=== PATIENT | male | born 2000 | race Caucasian/White ===

== ENCOUNTER 2021-04-11 13:55 | Observation (INO) ==
[2021-04-11] MEDS ORDERED: Ondansetron 4 MG/2 ML VIAL IVP ONE (14:56)
[2021-04-11] MEDS ORDERED: Isovue-370 500 ML BOTTLE IVP ONE (14:56)
[2021-04-11] MEDS ORDERED: 0.9 % Sodium Chloride 1,000 ML IVC ONE (14:56)
[2021-04-11 15:07] LABS: Basophils % 0.2 %; Eosinophils # 0.1 K/mcL (0.0-0.6); Eosinophils % 0.4 %; Hematocrit 44.5 % (37.5-50.1); Hemoglobin 14.4 g/dL (12.9-16.9); Immature Granulocytes % 0.4 % (0-4); Lymphocytes # 2.1 K/mcL (0.6-4.6); Lymphocytes % 14.4 %; Mean Corpuscular HGB Conc 32.4 g/dL (31.6-35.5); Mean Corpuscular Hemoglobin 28.1 pg (28.0-33.3); Mean Corpuscular Volume 86.9 fL (83.0-100.0); Monocytes # 1.4 K/mcL (0.0-1.3); Monocytes % 9.5 %; Neutrophils # 11.1 K/mcL (1.6-8.9); Platelet Count 250 K/mcL (140-400); Red Blood Count 5.12 M/mcL (4.19-5.50); Red Cell Distribution Width 12.9 % (11.5-14.5); Segmented Neutrophils % 75.1 %; White Blood Count 14.8 K/mcL (4.3-11.1)
[2021-04-11 15:09] LABS: Amorphous Sediment,Urine Few per hpf (None-Few); Bilirubin,Urine Negative (Negative); Blood,Urine Negative (Negative); Clarity,Urine Turbid (Clear); Color,Urine Yellow (Yellow); Glucose,Urine (UA) Normal (Normal); Ketones,Urine Negative (Negative); Leukocyte Esterase,Urine Negative (Negative); Mucus,Urine Few per lpf (None-Few); Nitrite,Urine Negative (Negative); Protein,Urine 30 mg/dL (Neg-Trace); RBC,Urine 0-3 per hpf (0-3); Specific Gravity,Urine 1.021 (1.010-1.025)
[2021-04-11 15:15] LABS: INR 1.4; Prothrombin Time 15.7 Seconds (9.4-12.1)
[2021-04-11 15:18] LABS: Activated Partial Thrombo Time 30.4 Seconds (26.0-36.0)
[2021-04-11 15:41] LABS: Alanine Aminotransferase 10 Units/L (7-52); Albumin 4.8 g/dL (3.5-5.7); Albumin/Globulin Ratio 2.1 (1.1-2.2); Alkaline Phosphatase 40 Units/L (34-104); Amylase 37 Units/L (29-103); Aspartate Amino Transferase 13 Units/L (13-39); BUN/Creatinine Ratio 12 (6-26); Bilirubin,Direct 0.2 mg/dL (0.0-0.2); Bilirubin,Indirect 0.9 mg/dL (0.0-1.0); Bilirubin,Total 1.1 mg/dL (0.3-1.0); Blood Urea Nitrogen 12 mg/dL (6-20); Calcium 9.3 mg/dL (8.6-10.3); Carbon Dioxide 29 mEq/L (23-29); Chloride 101 mEq/L (98-107); Globulin 2.3 g/dL (2.4-3.5); Glucose 91 mg/dL (70-105); Lipase 6 Units/L (11-82); Osmolality,Calculated 285 (280-300); Potassium 3.9 mEq/L (3.5-5.1); Sodium 138 mEq/L (136-145); Total Protein 7.1 g/dL (6.4-8.9); eGFR For African Americans > 60; eGFR For Non-African Americans > 60
[2021-04-11] MEDS ORDERED: Piperacillin/Tazobactam 3.375 GM in 0.9 % Sodium Chloride Mini Bag 100 ML IVPB ONE (17:06)
[2021-04-11] MEDS ORDERED: Ondansetron 4 MG/2 ML VIAL IVP PRN (17:30)
[2021-04-11] MEDS ORDERED: *HR* HYDROcodone/Acet 5/325 mg TABLET PO PRN (17:30)
[2021-04-11] MEDS ORDERED: *HR* FentaNYL (PF) 100 MCG/2 ML VIAL IVP PRN (18:15)
[2021-04-11] MEDS ORDERED: *HR* Propofol 200 MG/20 ML VIAL IVP ONE (19:27)
[2021-04-11] MEDS ORDERED: Lidocaine -MPF 1% 5 ML AMPUL ONE (19:27)
[2021-04-11] MEDS ORDERED: *HR* Rocuronium Bromide 50 MG/5 ML VIAL ONE (19:31)
[2021-04-11] MEDS ORDERED: *HR* Midazolam HCl 2 MG/2 ML VIAL ONE (19:31)
[2021-04-11] MEDS ORDERED: *HR* FentaNYL (PF) 100 MCG/2 ML VIAL ONE (19:31)
[2021-04-11] MEDS ORDERED: *HR* HYDROMORPHONE 2 MG/ML VIAL ONE (19:31)
[2021-04-11] MEDS ORDERED: Ondansetron 4 MG/2 ML VIAL ONE (19:32)
[2021-04-11] MEDS ORDERED: Lidocaine HCL 4 ML Topical Solution (Laryng-O-Jet Kit Sterile Pak) TP ONE (19:39)
[2021-04-11] MEDS ORDERED: Acetaminophen IV 1,000 MG/100 ML BAG IVPB ONE ×2 (20:15→20:19)
[2021-04-11] MEDS ORDERED: Sugammadex Sodium 200 MG/2 ML VIAL IV ONE (20:55)
[2021-04-11] MEDS ORDERED: *HR* OxyCODONE/APAP 5/325 TABLET PO PRN (21:30)
[2021-04-11] MEDS ORDERED: Ringers Solution, Lactated 1,000 ML ONE (21:58)
[2021-04-12] MEDS: Ketorolac 15 MG/ML VIAL IVP SCH ×2 (00:42→05:27)
[2021-04-12 01:32] LABS: Basophils % 0.1 %; Hematocrit 40.4 % (37.5-50.1); Hemoglobin 13.6 g/dL (12.9-16.9); Immature Granulocytes % 0.3 % (0-4); Lymphocytes # 0.7 K/mcL (0.6-4.6); Lymphocytes % 4.9 %; Mean Corpuscular HGB Conc 33.7 g/dL (31.6-35.5); Mean Corpuscular Hemoglobin 29.2 pg (28.0-33.3); Mean Corpuscular Volume 86.9 fL (83.0-100.0); Mean Platelet Volume 10.2 fL (9.4-12.4); Monocytes # 0.4 K/mcL (0.0-1.3); Monocytes % 2.9 %; Neutrophils # 13.1 K/mcL (1.6-8.9); Platelet Count 240 K/mcL (140-400); Red Blood Count 4.65 M/mcL (4.19-5.50); Segmented Neutrophils % 91.8 %; White Blood Count 14.3 K/mcL (4.3-11.1)
[2021-04-12 01:47] LABS: BUN/Creatinine Ratio 11 (6-26); Blood Urea Nitrogen 11 mg/dL (6-20); Calcium 8.9 mg/dL (8.6-10.3); Carbon Dioxide 26 mEq/L (23-29); Chloride 102 mEq/L (98-107); Glucose 122 mg/dL (70-105); Osmolality,Calculated 283 (280-300); Sodium 136 mEq/L (136-145); eGFR For African Americans > 60; eGFR For Non-African Americans > 60
[2021-04-12] MEDS ORDERED: *HR* OxyCODONE/APAP 5/325 TABLET PO PRN (07:28)
[2021-04-12] MEDS ORDERED: Ondansetron 4 MG/2 ML VIAL IVP PRN (07:28)
[2021-04-12] MEDS ORDERED: 0.9 % Sodium Chloride 1,000 ML IVC SCH (07:28)
[2021-04-12] MEDS: Piperacillin/Tazobactam 3.375 GM in 0.9 % Sodium Chloride Mini Bag 100 ML IVPB SCH ×2 (07:57→16:31)
[2021-04-12] MEDS ORDERED: 0.9 % Sodium Chloride 500 ML ONE (09:58)
[2021-04-12] MEDS ORDERED: IOPAMIDOL UR ONE (10:27)
[2021-04-12] MEDS ORDERED: SODIUM CHLORIDE 0.9% UR ONE (10:27)
[2021-04-12] MEDS ORDERED: Ketorolac 15 MG/ML VIAL IVP SCH (12:00)
[2021-04-12 14:40] VITALS: BP 113/66; PULSE 84; TEMP 98; O2SAT 99
== END 2021-04-12 17:45 | disposition home or self-care (01) ==
LOC: 3ANU 13:55 → EMEROOARM 13:55 → 3ANU 18:06
PROVIDERS: ADMIT Surgery; ATTEND Surgery